=== PATIENT | male | born 1985 | race Caucasian/White ===

== ENCOUNTER → 2021-03-30 | Outpatient (CLI) | payer BC ==
--- NOTE | 2021-03-30 14:19 | CT ---
EXAMINATION TYPE: CT angio chest DATE OF EXAM: 03/30/2021 COMPARISON: 06/23/2012 HISTORY: SOB, history of blood clots CT DLP: 671 mGycm Automated exposure control for dose reduction was used. CONTRAST: Performed with IV Contrast, patient injected with 100 mL of Isovue 370. Images obtained from the thoracic inlet to the diaphragm with IV contrast. There are 3-D post process ed images. FINDINGS: There is fairly normal aeration of the lung deleon. I see no pelvic consolidation. There is no eviden ce of a mass. There is no mediastinal adenopathy. Thoracic aorta is intact. There is no aneurysm or d issection. The ascending aorta measures 3.5 cm. There is normal contrast opacification of the pulmonary arteries. There are no filling defects. There are no hilar masses. The bony thorax is intact. The upper abdominal soft tissues are intact. IMPRESSION: Normal exam. No evidence of pulmonary embolism. No adverse change compared to old exam.
== END | disposition home or self-care (01) ==
LOC: RADCTMAIN 08:39
PROVIDERS: ATTEND Internal Medicine Hematology & Oncology
DX: R06.02 Shortness of breath (principal); Z86.718 Personal history of other venous thrombosis and embolism
CPT/HCPCS: 71275; Q9967

== ENCOUNTER → 2021-04-06 | Outpatient (CLI) | payer BC ==
--- NOTE | 2021-04-06 14:48 | US ---
EXAMINATION TYPE: US venous doppler duplex LE DATE OF EXAM: 04/06/2021 2:38 PM COMPARISON: US 06 23 2012 CLINICAL HISTORY: I82.5Z9 Deep vein thrombosis. Dyspnea, Hx blood clots SIDE PERFORMED: Bilateral TECHNIQUE: The lower extremity deep venous system is examined utilizing real time linear array sonog polo with graded compression, doppler sonography and color-flow sonography. VESSELS IMAGED: Common Femoral Vein Deep Femoral Vein Greater Saphenous Vein * Femoral Vein Popliteal Vein Small Saphenous Vein * Proximal Calf Veins (* superficial vessels) Right Leg: Negative for DVT Left Leg: Negative for DVT IMPRESSION: 1. No evidence of deep venous arthrosis in the bilateral lower extremities.
== END | disposition home or self-care (01) ==
LOC: RADUSWWP 13:51
PROVIDERS: ATTEND Internal Medicine Hematology & Oncology
DX: I82.5Z3 Chronic embolism and thrombosis of unspecified deep veins of distal lower extremity, bilateral (principal)
CPT/HCPCS: 93970